=== PATIENT | female | born 1980 | race American Indian/Alaskan Native ===

== ENCOUNTER 2020-02-06 15:56 | Observation (INO) | payer MEDICAID ==
[2020-02-06 19:15] VITALS: BP 133/75
[2020-02-06 20:25] LABS: Hematocrit 32.8 % (30.3-42.9); Hemoglobin 11.2 gm/dl (10.1-14.3); Mean Corpuscular HGB Conc 34 % (30-34); Mean Corpuscular Volume 84 fl (79-97); Platelet Count 137 K/mm3 (140-440); Red Cell Distribution Width 18.1 % (13.2-15.2)
--- NOTE | 2020-02-06 20:56 | Ultrasound Report ---
US OB limited INDICATION / CLINICAL INFORMATION: PRESENTATION. COMPARISON: None available. FINDINGS: Twin . Both fetuses appear to be in cephalic presentation. Signer Name: Fadi Lucas MD Signed: 02/06/2020 8:52 PM Workstation Name: [id number]
== END 2020-02-06 20:24 | disposition home or self-care (01) ==
LOC: INTOOBSV 15:56 → LD 15:56 → APU 15:57
PROVIDERS: ADMIT Obstetrics & Gynecology; ATTEND Obstetrics & Gynecology
DX: O30.003 Twin pregnancy, unspecified number of placenta and unspecified number of amniotic sacs, third trimester (principal); Z3A.37 37 weeks gestation of pregnancy; Z87.891 Personal history of nicotine dependence
CPT/HCPCS: 36415; 59025; 76815; 85027; 86850; 86900; 86901; G0378; G0379